=== PATIENT | male | born 1975 | race Caucasian/White ===

== ENCOUNTER 2019-01-09 06:34 | Emergency (ER) | payer OTHER ==
[2019-01-09] MEDS ORDERED: NS 1,000 ML IV ONE ×2 (06:42→07:39)
[2019-01-09] MEDS ORDERED: LORazepam 2 MG/ML INJ IVP ONE (06:43)
--- NOTE | 2019-01-09 06:43 | EDPHY ---
H & P Time Seen by Provider: 01/09/19 06:40 HPI/ROS: Chief Complaint: Loss of conscious, possible seizure HPI: 43-year-old male brought in from snf after being found unconscious underneath his cough. Patient was arrested under a DUI last night brought to snf. He did get up this morning and go down to breakfast. He went back to his cell was found under is caught. He does not have recollection of events. He does have a knot on the top of his left side of his head. Does not remember falling or hitting his head. Thinks he may have had a history of seizures in the past. Does not take any medications. Denies any other drug use. No headache. No neck pain. No numbness or weakness. No nausea or vomiting. Patient is noted to be hypertensive and tachycardic per EMS. ROS: 10 systems were reviewed and were negative except those elements noted in the HPI. PMH: Denies Social History: Positive smoking, positive alcohol, no recreational drug use Family History: non-contributory Physical Exam: Patient is tachycardic and hypertensive Gen: Awake, Alert, Airway Intact, no distress HEENT: Head: Patient has a moderate scalp hematoma on the left parietal. No bony tenderness or deformity Eyes: PERRLA, EOMI Nose: No epistaxis Mouth: Normal dentition, Airway patent Face: No deformity Neck: non-tender, no stepoff, Full ROM without pain Chest: non-tender, lungs CTA Heart: normal heart tones Abd: soft, non-tender, atraumatic Pelvis: non-tender, stable to AP and Lateral compression Back: atraumatic, no midline tenderness Ext: atramatic, full ROM Skin: no rash Neuro: CN II-XII intact, Strength 5/5 in all extremities, sensation intact in all extremities (Juan Lopez) Constitutional: Initial Vital Signs Temperature (C) 36.6 C 01/09/19 06:39 Heart Rate 134 H 01/09/19 06:39 Respiratory Rate 18 01/09/19 06:39 Blood Pressure 164/113 H 01/09/19 06:39 O2 Sat (%) 88 L 01/09/19 06:39 O2 Delivery Mode Room Air O2 (L/minute) 2 Allergies/Adverse Reactions: Penicillins Allergy (Verified 01/09/19 06:39) Home Medications: Medication Instructions Recorded NK [No Known Home Meds] 01/09/19 Medical Decision Making ED Course/Re-evaluation: Patient signed out to Dr. Lundy pending improvement in his withdrawal symptoms. (Juan Lopez) 0 700: Patient is signed out to me at change of shift by Dr. Lopez. Patient had been given lorazepam 2 mg IV. I personally evaluated the patient. He was lying in bed comfortably. Diffuse was present. He was responding my questions appropriately. Patient's tachycardia 114. Mildly hypertensive 164/113. GENERAL: No acute distress, alert. HEENT: Eyes normal to inspection, normal pharynx, no signs of dehydration. The no head trauma NECK: Normal, supple. No spinal tenderness RESPIRATORY: Clear to auscultation bilaterally, no rales, rhonchi or wheezing. CVS: Tachycardia with regular rhythm, no rubs, murmurs, or gallops. ABDOMEN: Soft, nontender, nondistended. BACK: Normal to inspection, no CVA tenderness. No spinal tenderness SKIN: Normal color, no rash, warm, dry. No pallor. EXTREMITIES: No pedal edema, no calf tenderness, no joint swelling. NEURO/PSYCH: Alert and oriented, slightly flat affect, normal motor sensory exam. No obvious cranial nerve deficit. I reviewed the patient's laboratory studies. White count was normal. Chemistry panel was notable for low sodium of 134. Potassium slightly low at 3.3. Anion gap was 16. 735: I rechecked the patient. He is resting comfortably in the room. He was not agitated. He still had a heart rate that was elevated at 116. The patient was given Librium 25 mg orally and normal saline 1 L IV for hydration. Repeat CIWA = 1. The snf was contacted and they accepted the patient back to their facility. Patient is aware the plan. (Nova Lundy) Differential Diagnosis: My differential includes but is not limited to closed-head injury, subarachnoid hemorrhage, subdural hematoma epidural hematoma, seizure disorder, alcohol withdrawal seizure, mass, malignancy, CVA (Nova Lundy) - Data Points Laboratory Results: Laboratory Results 01/09/19 06:46 01/09/19 06:46 01/09/19 01/09/19 06:46 06:46 WBC 5.14 10^3/uL 10^3/uL (3.80-9.50) RBC 4.46 10^6/uL 10^6/uL (4.40-6.38) Hgb 14.6 g/dL g/dL (13.7-17.5) Hct 41.2 % % (40.0-51.0) MCV 92.4 fL fL (81.5-99.8) MCH 32.7 pg pg (27.9-34.1) MCHC 35.4 g/dL g/dL (32.4-36.7) RDW 12.8 % % (11.5-15.2) Plt Count 103 10^3/uL L 10^3/uL (150-400) MPV 11.7 fL fL (8.7-11.7) Neut % (Auto) 56.2 % % (39.3-74.2) Lymph % (Auto) 36.2 % % (15.0-45.0) [place] % (Auto) 5.8 % % (4.5-13.0) Eos % (Auto) 0.4 % L % (0.6-7.6) Baso % (Auto) 1.2 % % (0.3-1.7) Nucleat RBC Rel Count 0.0 % % (0.0-0.2) Absolute Neuts (auto) 2.89 10^3/uL 10^3/uL (1.70-6.50) Absolute Lymphs (auto) 1.86 10^3/uL 10^3/uL (1.00-3.00) Absolute Monos (auto) 0.30 10^3/uL 10^3/uL (0.30-0.80) Absolute Eos (auto) 0.02 10^3/uL L 10^3/uL (0.03-0.40) Absolute Basos (auto) 0.06 10^3/uL 10^3/uL (0.02-0.10) Absolute Nucleated RBC 0.00 10^3/uL 10^3/uL (0-0.01) Immature Gran % 0.2 % % (0.0-1.1) Immature Gran # 0.01 10^3/uL 10^3/uL (0.00-0.10) Sodium 134 mEq/L L mEq/L (135-145) Potassium 3.3 mEq/L L mEq/L (3.5-5.2) Chloride 95 mEq/L L mEq/L (97-110) Carbon Dioxide 23 mEq/l mEq/l (22-31) Anion Gap 16 mEq/L H mEq/L (6-14) BUN 8 mg/dL mg/dL (7-23) Creatinine 0.7 mg/dL mg/dL (0.7-1.3) Estimated GFR > 60 Glucose 203 mg/dL H mg/dL (70-100) Calcium 8.9 mg/dL mg/dL (8.5-10.4) Medications Given: Discontinued Medications Chlordiazepoxide HCl (Librium) 25 mg PO EDNOW ONE Stop: 01/09/19 07:40 Last Admin: 01/09/19 07:46 Dose: 25 mg Sodium Chloride (Ns) 1,000 mls @ 0 mls/hr IV ONCE ONE; Wide Open PRN Reason: Protocol Stop: 01/09/19 06:43 Last Admin: 01/09/19 06:47 Dose: 1,000 mls Sodium Chloride (Ns) 1,000 mls @ 0 mls/hr IV ONCE ONE PRN Reason: Wide Open Stop: 01/09/19 07:40 Last Admin: 01/09/19 07:47 Dose: 1,000 mls Lorazepam (Ativan Injection) 2 mg IVP EDNOW ONE Stop: 01/09/19 06:44 Last Admin: 01/09/19 06:48 Dose: 2 mg Departure - Departure Disposition: Law Enforcement/Court/[facility] Clinical Impression: Seizure Alcohol withdrawal seizure Qualifiers: Complication of substance-induced condition: uncomplicated Qualified Code(s): F10.230 - Alcohol dependence with withdrawal, uncomplicated Condition: Good Instructions: Alcohol Withdrawal (ED) Additional Instructions: Return with repeat seizures, worsening symptoms or any other concerns.
[2019-01-09 06:54] LABS: PLATELET COUNT 103 10^3/uL (150-400)
[2019-01-09] MEDS ORDERED: chlordiazePOXIDE 25 MG CAP PO ONE (07:39)
[2019-01-09 08:37] VITALS: BP 147/96
== END 2019-01-09 09:40 ==
LOC: EEVIPCON 06:34
DX: R56.9 Unspecified convulsions (principal); F10.230 Alcohol dependence with withdrawal, uncomplicated; E86.9 Volume depletion, unspecified
CPT/HCPCS: 96374; J2060